=== PATIENT | male | born 1990 | race African-American/Black ===

== ENCOUNTER 2023-12-13 08:04 | Emergency (ER) | payer OTHER ==
[~2023-12-13] VITALS: Ht 177.8 cm; Wt 107.8 kg
[2023-12-13 08:06] VITALS: BP 142/81; TEMP 98; O2SAT 98
== END 2023-12-13 10:00 | disposition home or self-care (01) ==
LOC: M ED 08:04
DX: S93.412A Sprain of calcaneofibular ligament of left ankle, initial encounter (principal); Y92.9 Unspecified place or not applicable; Y93.9 Activity, unspecified; Y99.9 Unspecified external cause status